=== PATIENT | male | born 1975 | race Caucasian/White ===

== ENCOUNTER 2020-08-21 09:55 | Emergency (ER) | payer MEDICARE, MEDICAID ==
[~2020-08-21] VITALS: Ht 175.3 cm; Wt 118.0 kg
[~2020-08-21 09:55] MED LIST: CYCL-1 PO; FENO48TA15 PO; NAPR-56 PO; VENL-190 PO
[2020-08-21 10:42] LABS: BASOPHILS # (AUTO) 0.1 X10'3 (0-0.2); BASOPHILS % (AUTO) 0.5 % (0-1); EOSINOPHILS # (AUTO) 0.1 X10'3 (0-0.9); EOSINOPHILS % (AUTO) 0.3 % (0-6); HEMATOCRIT 45.5 % (42.0-52.0); HEMOGLOBIN 15.4 g/dl (14.0-17.9); LYMPHOCYTES # (AUTO) 2.4 X10'3 (1.1-4.8); LYMPHOCYTES % (AUTO) 14.6 % (21-51); MEAN CORPUSCULAR HGB CONC 33.9 g/dL (33.0-36.5); MEAN CORPUSCULAR VOLUME 82.3 FL (78-98); MEAN PLATELET VOLUME 8.4 FL (7.4-10.4); MONOCYTES # (AUTO) 1.1 X10'3 (0-0.9); MONOCYTES % (AUTO) 6.9 % (2-12); NEUTROPHILS # (AUTO) 12.9 X10'3 (1.8-7.7); NEUTROPHILS % (AUTO) 77.7 % (42-75); PLATELET COUNT 268 X10'3 (140-440); RED BLOOD COUNT 5.52 X10'6 (4.70-6.10); RED CELL DISTRIBUTION WIDTH 13.7 % (11.5-14.5); WHITE BLOOD COUNT 16.6 X10'3 (4.5-11.0)
[2020-08-21] MEDS ORDERED: LORazepam 2 mg/ml vial IV ONE (10:45)
[2020-08-21 10:59] LABS: ALANINE AMINOTRANSFERASE 35 U/L (12-78); ALBUMIN 3.7 G/DL (3.4-5.0); ALKALINE PHOSPHATASE 49 IU/L (46-116); ANION GAP 9 (8-16); ASPARTATE AMINO TRANSFERASE 30 U/L (10-37); BILIRUBIN,TOTAL 0.4 MG/DL (0.1-1.0); BLOOD UREA NITROGEN 11 MG/DL (7-18); BUN/CREATININE RATIO 9.6 (5.4-32.0); CHLORIDE 101 MMOL/L (99-107); CREATINE KINASE 552 U/L (39-308); CREATININE 1.14 MG/DL (0.60-1.10); GLUCOSE 225 MG/DL (70-104); POTASSIUM 4.1 MMOL/L (3.5-5.1); SODIUM 138 MMOL/L (135-145); TOTAL CARBON DIOXIDE 27.6 MMOL/L (24-32); TOTAL PROTEIN 7.5 G/DL (6.4-8.2); eGFR 69 ML/MIN
[2020-08-21] MEDS ORDERED: ketorolac trometh. 30mg/ml inj. IV ONE (11:05)
--- NOTE | 2020-08-21 12:01 | NUR ---
pt to ct.
[2020-08-21] MEDS ORDERED: morphine 4 MG/ML inj SYRINge IV ONE (12:15)
[2020-08-21] MEDS ORDERED: DIAZ5TAB22 PO (13:07)
[2020-08-21] MEDS ORDERED: HYDR-3965 PO (13:07)
[2020-08-21 14:06] VITALS: BP 98/70
--- NOTE | 2020-08-21 14:06 | NUR ---
Patient states he feels light headed and diaphoretic before dc. Up in chair, BP 97/58. Suly flowers aware, orders to monitor patient.
[2020-08-21] MEDS ORDERED: normal saline 1000ML IV soln IVB ONE (14:15)
[2020-08-21] MEDS ORDERED: metoclopramide 5 mg/ml inj IV ONE (14:45)
--- NOTE | 2020-08-21 15:07 | NUR ---
PATIENT STATES HE IS NO LONGER LIGHT HEADED AND ABDOMINAL PAIN HAS RESOLVED.
[2020-08-21 15:19] LABS: CLARITY,URINE CLEAR (Clear); COLOR,URINE YELLOW (Yellow); GLUCOSE, URINE 250 mg/dl (Neg); KETONES,URINE NEGATIVE (Neg); LEUKOCYTE ESTERASE ,URINE NEGATIVE (Neg); NITRITES, URINE NEGATIVE (Neg); OCCULT BLOOD,URINE NEGATIVE (Neg); PH,URINE 5.5 (4.8-8.0); PROTEIN,URINE TRACE mg/dl (Neg); UROBILINOGEN,URINE 0.2 E.U/dL (0.2-1.0)
[2020-08-21 15:34] LABS: UA COLLECTION TYPE URINAL
[2020-08-21 15:35] LABS: BACTERIA,URINE FEW /HPF (Neg); CAL OXALATE CRYSTALS 4+ /HPF (NEGATIVE); RBC,URINE 0-2 /HPF (0-2); SQUAMOUS EPITHELIAL CELL,UR NONE SEEN /LPF (FEW); WBC,URINE 0-4 /HPF (0-4)
== END 2020-08-21 15:47 | disposition home or self-care (01) ==
LOC: ER 09:56
DX: M54.6 Pain in thoracic spine (principal); M62.830 Muscle spasm of back; G89.29 Other chronic pain; F32.9 Major depressive disorder, single episode, unspecified; Z60.2 Problems related to living alone; Z79.899 Other long term (current) drug therapy
CPT/HCPCS: 36415; 72070; 72100; 72128; 80053; 81001; 82550; 84145; 85025; 96361; 96374; 96375; 99285; J1885; J2060; J2270; J7030

== ENCOUNTER 2021-12-10 04:18 | Emergency (ER) | payer MEDICARE, MEDICAID ==
[~2021-12-10] VITALS: Ht 172.7 cm; Wt 93.2 kg
--- NOTE | 2021-12-10 04:47 | NUR ---
friends wants to be called for ride or if pt. needs anything connor [phone]
[2021-12-10] MEDS ORDERED: METF-1203 PO (04:48)
[2021-12-10] MEDS ORDERED: VENL75CA61 PO (04:48)
[2021-12-10] MEDS ORDERED: FENO145T25 (04:48)
[2021-12-10] MEDS ORDERED: SITA25TA3 PO (04:49)
[2021-12-10] MEDS ORDERED: LORazepam 1 MG tablet PO ONE ×2 (04:50→05:20)
--- NOTE | 2021-12-10 05:33 | NUR ---
pt. started staring at the ceiling and making exaggerated movements in bed. pt. then stated that he has "multiple personalities". pt. is now more relaxed in bed and seizure pads are placed as a precaution.
[2021-12-10 05:35] VITALS: BP 135/79
== END 2021-12-10 06:01 | disposition home or self-care (01) ==
LOC: ER 04:19
DX: F32.A Depression, unspecified (principal); F41.9 Anxiety disorder, unspecified; G89.29 Other chronic pain; M54.9 Dorsalgia, unspecified; Z79.899 Other long term (current) drug therapy
CPT/HCPCS: 93005; 99283

== ENCOUNTER 2022-03-19 01:24 | Emergency (ER) | payer MEDICARE, MEDICAID ==
[~2022-03-19] VITALS: Ht 175.3 cm; Wt 100.0 kg
[~2022-03-19 01:24] MED LIST changes: +FENO145T25; +METF-1203 PO; +SITA25TA3 PO; +VENL75CA61 PO
[2022-03-19 01:42] VITALS: BP 145/85
[2022-03-19] MEDS ORDERED: cyclobenzaprine 10mg tablet PO ONE (03:50)
[2022-03-19] MEDS ORDERED: LIDOcaine 5% patch TP SCH (03:50)
[2022-03-19] MEDS ORDERED: LIDO1ADH67 TD (03:53)
[2022-03-19] MEDS ORDERED: IBUP-1984 PO (03:53)
[2022-03-19] MEDS ORDERED: CYCL-1 PO (03:53)
== END 2022-03-19 04:03 | disposition home or self-care (01) ==
LOC: ER 01:24
DX: M62.830 Muscle spasm of back (principal); G89.29 Other chronic pain; M54.50 Low back pain, unspecified
CPT/HCPCS: 99283

== ENCOUNTER 2022-05-23 18:01 | Emergency (ER) | payer MEDICARE, MEDICAID ==
[~2022-05-23] VITALS: Ht 175.3 cm; Wt 100.0 kg
[~2022-05-23 18:01] MED LIST changes: +LEVO500T2 PO; +LIDO1ADH67 TD
[2022-05-23 18:31] LABS: BASOPHILS # (AUTO) 0.1 X10'3 (0-0.2); BASOPHILS % (AUTO) 0.8 % (0-1); EOSINOPHILS # (AUTO) 0.2 X10'3 (0-0.9); EOSINOPHILS % (AUTO) 1.4 % (0-6); HEMATOCRIT 45.8 % (42.0-52.0); HEMOGLOBIN 15.9 g/dl (14.0-17.9); LYMPHOCYTES # (AUTO) 3.7 X10'3 (1.1-4.8); LYMPHOCYTES % (AUTO) 34.5 % (21-51); MEAN CORPUSCULAR HEMOGLOBIN 29.2 PG (27.0-31.0); MEAN CORPUSCULAR HGB CONC 34.7 g/dL (33.0-36.5); MEAN CORPUSCULAR VOLUME 84.3 FL (78-98); MEAN PLATELET VOLUME 8.6 FL (7.4-10.4); MONOCYTES # (AUTO) 0.8 X10'3 (0-0.9); MONOCYTES % (AUTO) 7.4 % (2-12); NEUTROPHILS % (AUTO) 55.9 % (42-75); PLATELET COUNT 267 X10'3 (140-440); RED BLOOD COUNT 5.43 X10'6 (4.70-6.10); RED CELL DISTRIBUTION WIDTH 13.9 % (11.5-14.5); WHITE BLOOD COUNT 10.7 X10'3 (4.5-11.0)
[2022-05-23 18:41] LABS: ALANINE AMINOTRANSFERASE 34 U/L (12-78); ALBUMIN 4.4 G/DL (3.4-5.0); ALBUMIN/GLOBULIN RATIO 1.3 (1.1-1.5); ALKALINE PHOSPHATASE 39 IU/L (46-116); ANION GAP 7 (8-16); ASPARTATE AMINO TRANSFERASE 30 U/L (10-37); BILIRUBIN,TOTAL 0.4 MG/DL (0.1-1.0); BLOOD UREA NITROGEN 11 MG/DL (7-18); BUN/CREATININE RATIO 10.7 (5.4-32.0); CALCIUM 9.7 MG/DL (8.5-10.1); CHLORIDE 105 MMOL/L (99-107); CREATININE 1.03 MG/DL (0.60-1.10); GLUCOSE 108 MG/DL (70-104); POTASSIUM 3.3 MMOL/L (3.5-5.1); SODIUM 140 MMOL/L (135-145); TOTAL PROTEIN 7.9 G/DL (6.4-8.2); eGFR 77 ML/MIN
[2022-05-23 18:56] LABS: ETHANOL < 0.010 GM/DL (0.0-0.010)
--- NOTE | 2022-05-23 19:30 | NUR ---
Arrived to bed-26 from ER at this time for SI. H/O Split personality disorder. Patient currently denies SI, HI and VH. Reports AH of Sukhwinder (one of his personalities) telling himself to commit suicide. Pleasant, calm and cooperative. Inventory of belongings done and placed in closet and safe. Will continue to monitor.
[2022-05-23] MEDS ORDERED: LORA-268 PO (19:45)
[2022-05-23] MEDS ORDERED: FAMO20TA8 (19:45)
[2022-05-23 19:50] LABS: URINE AMPHETAMINE SCREEN NEGATIVE (Neg); URINE BARBITUATE SCREEN NEGATIVE (Neg); URINE BENZODIAZEPINES SCREEN NEGATIVE (Neg); URINE CANNABINOID SCREEN NEGATIVE (Neg); URINE COCAINE SCREEN NEGATIVE (Neg); URINE METHADONE SCREEN NEGATIVE (Neg); URINE OPIATE SCREEN NEGATIVE (Neg); URINE PHENCYCLIDINE SCREEN NEGATIVE (Neg)
[2022-05-23] MEDS ORDERED: LORazepam 0.5 MG tablet PO PRN (20:35)
[2022-05-23] MEDS ORDERED: potassium Cl 20 mEq SR tablet PO ONE (20:45)
--- NOTE | 2022-05-23 21:30 | NUR ---
Took HS meds well. Pleasant and cooperative. Will continue to monitor. Addendum: 05/23/22 at 2349 by DARIEL Received patient to overflow with a low K+ 3.3. Received replacment orders and administered. Will do follow up K+ lab in the am.
--- NOTE | 2022-05-23 23:35 | NUR ---
Patient appears to be sleeping. Noted the rise/fall of chest. No s/sx of distress noted. Will continue to monitor.
--- NOTE | 2022-05-24 01:15 | NUR ---
Patient sitting on the side of the bed. Expressed that he takes melatonin 5 mg po at home. Will contact .
[2022-05-24] MEDS ORDERED: Melatonin 3mg tablet PO STA (01:26)
--- NOTE | 2022-05-24 01:58 | NUR ---
Administered Melatonin for sleep aid. Will continue to monitor.
--- NOTE | 2022-05-24 03:19 | NUR ---
Patient appears to be sleeping after melatonin administration. Resting on left side with cover pulled over his head resting quietly. RR even/nonlabored. Will continue to monitor.
--- NOTE | 2022-05-24 05:15 | NUR ---
Lab here to draw potassium level. Patient was found "meditating" in bed sitting with legs crossed and hands in a praying position. Noted to be pleasant and cooperative. Will continue to monitor.
--- NOTE | 2022-05-24 07:00 | NUR ---
Patient resting comfortably, rr even and unlabored.
[2022-05-24] MEDS ORDERED: venlafaxine XR 75mg capsule (Q24H) PO SCH (08:00)
[2022-05-24] MEDS ORDERED: linagliptin 5mg tablet PO SCH (08:00)
[2022-05-24] MEDS ORDERED: famotidine 20mg tablet PO SCH (08:00)
[2022-05-24] MEDS ORDERED: metFORMIN 500mg tablet PO SCH (08:00)
--- NOTE | 2022-05-24 09:00 | NUR ---
One to one with patient to assess suicidal thoughts. Pt was sitting on side of bed upon greeting. Pt is calm, but does not make eye contact. Pt denies SI/HI/A/VH. Pt states "I just want to go home and go to bed." Pt reports he was told to say he was suicidal, so he would get admitted. "i feel like I was trcked into this and I didn't want to be alone." Pt needs medication adjustment. Pt was educated that the ED does not make adjustments to current medications. Pt has MH and PCP with Clarke Gupta. Pt has support from [facility] and parents live in [facility]
--- NOTE | 2022-05-24 09:31 | NUR ---
Patient has been up and down sorta pacing he said that he has foor cramps. Patient is now resting in bed. [facility] came in to talk to patient @9:10am
--- NOTE | 2022-05-24 11:09 | NUR ---
Patient resting comfortably, rr even and unlabored.
--- NOTE | 2022-05-24 13:00 | NUR ---
pt laying in bed quietly
--- NOTE | 2022-05-24 13:38 | NUR ---
Pt awake sitting on his bed. Pt waiting for parents to come and pick him up.
--- NOTE | 2022-05-24 15:11 | NUR ---
DISCHARGE NOTE Patient was discharged from unit at 1415. Pt left with all personal belongings, including his wallet. Pt was discharged to mom and dad. Pt was A&Ox 4. Pt denied thoughts of hurting self or others. Reforced the importance of keeping follow up appointment with Clarke Gupta, pt verbalized understanding.
[2022-05-24 15:13] VITALS: BP 106/73
== END 2022-05-24 14:15 | disposition home or self-care (01) ==
LOC: ER 18:02
DX: F29 Unspecified psychosis not due to a substance or known physiological condition (principal); Z20.822 Contact with and (suspected) exposure to COVID-19; E87.6 Hypokalemia; G89.29 Other chronic pain; M54.9 Dorsalgia, unspecified; F32.A Depression, unspecified; Z79.899 Other long term (current) drug therapy; Z79.1 Long term (current) use of non-steroidal anti-inflammatories (NSAID); Z79.2 Long term (current) use of antibiotics
CPT/HCPCS: 36415; 80053; 80305; 80320; 84132; 84443; 85025; 87811; 99285

== ENCOUNTER 2022-07-21 06:44 | Observation (INO) | payer MEDICARE, MEDICAID ==
[~2022-07-21] VITALS: Ht 83.8 cm; Wt 97.0 kg
[~2022-07-21 06:44] MED LIST changes: -CYCL-1 PO; +FAMO20TA8; -FENO145T25; -FENO48TA15 PO; -LEVO500T2 PO; -LIDO1ADH67 TD; +LORA-268 PO; -NAPR-56 PO; -VENL-190 PO
--- NOTE | 2022-07-21 07:01 | NUR ---
CALL PLACED TO PTS FATHER GEORGIE PT HAS REQUESTED HIS PARENTS BE UPDATED AND ASKED TO COME TO THE [facility]. FATHER STATES THAT THEY LIVE AN HOUR AWAY BUT THEY WILL COME TO [facility] SOON POSSIBLE
[2022-07-21] MEDS ORDERED: iohexol 350MG/ML 100ml bottle IV ONE (07:22)
--- NOTE | 2022-07-21 07:26 | NUR ---
BLUE PAULO NEURO CONSULT COMPLETED
[2022-07-21] MEDS: MESSAGE TO NURSING PO NR ×2 (07:30→10:00)
[2022-07-21 07:42] LABS: CLARITY,URINE CLEAR (Clear); COLOR,URINE YELLOW (Yellow); GLUCOSE, URINE NEGATIVE (Neg); KETONES,URINE NEGATIVE (Neg); LEUKOCYTE ESTERASE ,URINE NEGATIVE (Neg); NITRITES, URINE NEGATIVE (Neg); OCCULT BLOOD,URINE NEGATIVE (Neg); PROTEIN,URINE NEGATIVE (Neg); UA COLLECTION TYPE CLN CATCH MIDSTREAM; UROBILINOGEN,URINE 0.2 E.U/dL (0.2-1.0)
[2022-07-21 08:12] LABS: BASOPHILS # (AUTO) 0.1 X10'3 (0-0.2); BASOPHILS % (AUTO) 0.7 % (0-1); EOSINOPHILS # (AUTO) 0.2 X10'3 (0-0.9); EOSINOPHILS % (AUTO) 1.8 % (0-6); HEMATOCRIT 43.2 % (42.0-52.0); HEMOGLOBIN 14.8 g/dl (14.0-17.9); LYMPHOCYTES # (AUTO) 2.4 X10'3 (1.1-4.8); MEAN CORPUSCULAR HEMOGLOBIN 29.7 PG (27.0-31.0); MEAN CORPUSCULAR HGB CONC 34.3 g/dL (33.0-36.5); MEAN CORPUSCULAR VOLUME 86.5 FL (78-98); MONOCYTES # (AUTO) 0.8 X10'3 (0-0.9); NEUTROPHILS # (AUTO) 5.3 X10'3 (1.8-7.7); NEUTROPHILS % (AUTO) 60.5 % (42-75); PLATELET COUNT 223 X10'3 (140-440); RED BLOOD COUNT 4.99 X10'6 (4.70-6.10); RED CELL DISTRIBUTION WIDTH 13.8 % (11.5-14.5); WHITE BLOOD COUNT 8.7 X10'3 (4.5-11.0)
[2022-07-21 08:25] LABS: APTT 29 SECONDS (22-32)
[2022-07-21 08:28] LABS: ALANINE AMINOTRANSFERASE 30 U/L (12-78); ALBUMIN 3.7 G/DL (3.4-5.0); ALBUMIN/GLOBULIN RATIO 1.2 (1.1-1.5); ALKALINE PHOSPHATASE 35 IU/L (46-116); ANION GAP 8 (8-16); ASPARTATE AMINO TRANSFERASE 24 U/L (10-37); BILIRUBIN,TOTAL 0.2 MG/DL (0.1-1.0); BLOOD UREA NITROGEN 15 MG/DL (7-18); BUN/CREATININE RATIO 13.4 (10.0-20.0); CHLORIDE 100 MMOL/L (99-107); CREATININE 1.12 MG/DL (0.60-1.10); GLUCOSE 112 MG/DL (70-104); POTASSIUM 3.7 MMOL/L (3.5-5.1); SODIUM 137 MMOL/L (135-145); TOTAL CARBON DIOXIDE 29.4 MMOL/L (24-32); TOTAL PROTEIN 6.7 G/DL (6.4-8.2); eGFR 70 ML/MIN
[2022-07-21 08:33] LABS: CALCIUM 9.1 MG/DL (8.5-10.1)
--- NOTE | 2022-07-21 08:55 | NUR ---
PT TO BE ADMITTED FOR R/O STROKE, PER DR MCCALL Q15 VITALS NOT NECESSARY
--- NOTE | 2022-07-21 08:56 | NUR ---
PTS FATHER AT BEDSIDE, STROKE NURSE AT BEDSIDE TO PERFORM NIH AND SWALLOW EVAL
[2022-07-21] MEDS ORDERED: magnesium 4gm in 100ml NS 100 ML IV PRN (10:10)
[2022-07-21] MEDS ORDERED: morphine 2 MG/ML inj. syringe IV PRN (10:10)
[2022-07-21] MEDS ORDERED: magnesium hydroxide 30ml (MOM) UD suspension PO PRN (10:10)
[2022-07-21] MEDS ORDERED: magnesium 2GM in 50ml NS 50 ML IV PRN (10:10)
[2022-07-21] MEDS ORDERED: acetaminophen 325mg tablet PO PRN ×2 (10:10)
[2022-07-21] MEDS ORDERED: potassium Cl 20 mEq SR tablet PO PRN (10:10)
[2022-07-21] MEDS ORDERED: potassium Cl 40MEQ/1/2NS 520ml 520 ML IV PRN (10:10)
[2022-07-21] MEDS ORDERED: magnesium Cl slow-release 64mg tablet PO PRN (10:10)
[2022-07-21] MEDS ORDERED: ondansetron/PF 4mg/2ml inj IV PRN (10:10)
[2022-07-21] MEDS ORDERED: HYDROcodone/acetaminophen 5mg/325mg tablet PO PRN (10:10)
[2022-07-21] MEDS: atorvastatin 20mg tablet PO SCH (11:17)
[2022-07-21] MEDS: normal saline 1000ml 1,000 ML IV SCH ×2 (11:17→14:29)
[2022-07-21] MEDS: aspirin 81mg, enteric-coated 1 TAB TABLET.DR PO SCH (11:17)
[2022-07-21] MEDS ORDERED: FENO145T25 PO (13:01)
[2022-07-21] MEDS ORDERED: ARIP10TA57 PO (13:01)
[2022-07-21] MEDS ORDERED: IBUP-1985 PO (13:01)
[2022-07-21] MEDS ORDERED: VENL150T3 PO (13:01)
[2022-07-21] MEDS ORDERED: CETI10TA14 (13:01)
--- NOTE | 2022-07-21 13:32 | NUR ---
report given to Sandra Davison RN
[2022-07-21 14:00] VITALS: BP 129/83
[2022-07-21] MEDS ORDERED: LORazepam 0.5 MG tablet PO PRN (15:55)
[2022-07-21] MEDS ORDERED: MESSAGE TO PHARMACY PO ONE (16:00)
[2022-07-21] MEDS ORDERED: dextrose 50%-water 50ml dispensing syringe IV PRN ×2 (16:00)
[2022-07-21] MEDS ORDERED: insulin Lispro (HumaLOG) vial - multi-dose SQ SCH (16:00)
[2022-07-21] MEDS ORDERED: DEXTROSE 15 GM of carb/4 tabs (each vial/BOTTLE has 4 tablets) PO PRN ×2 (16:00)
[2022-07-21] MEDS ORDERED: glucagon, human recombinant 1mg kit SUBCUT PRN (16:00)
[2022-07-21 18:00] VITALS: BP 117/77
[2022-07-21 18:10] LABS: CHOL/HDL RATIO 4.3 (0.00-4.99); CHOLESTEROL 180 MG/DL (0-200); HDL CHOLESTEROL 42 MG/DL (35-60); LDL CHOLESTEROL 114 MG/DL (50-100); POTASSIUM 4.2 MMOL/L (3.5-5.1); TRIGLYCERIDES 95 MG/DL (20-135)
[2022-07-21 18:23] LABS: HEMOGLOBIN A1C 5.3 % (4.5-6.2)
--- NOTE | 2022-07-21 18:33 | NUR ---
Problems reprioritized. Patient report given, questions answered & plan of care reviewed with Sarah RAMSO.
--- NOTE | 2022-07-21 18:55 | NUR ---
Patient in room ORTHO 4021. I have received report from JAYLEN RAMOS and had the opportunity to ask questions and assume patient care.
[2022-07-21] MEDS ORDERED: ARIPIPRAZOLE 10 MG TABLET PO SCH (21:00)
[2022-07-21] MEDS ORDERED: insulin glargine (Lantus) pen - multi-dose SQ SCH (21:00)
[2022-07-21] MEDS ORDERED: temazepam 15mg capsule PO PRN (21:00)
[2022-07-21 22:00] VITALS: BP 106/54
[2022-07-22 02:00] VITALS: BP 104/73
[2022-07-22] MEDS: normal saline 1000ml 1,000 ML IV SCH (03:33)
[2022-07-22 06:00] VITALS: BP 108/65
[2022-07-22 06:21] LABS: BASOPHILS # (AUTO) 0.1 X10'3 (0-0.2); BASOPHILS % (AUTO) 0.7 % (0-1); EOSINOPHILS # (AUTO) 0.1 X10'3 (0-0.9); EOSINOPHILS % (AUTO) 1.7 % (0-6); HEMATOCRIT 40.3 % (42.0-52.0); HEMOGLOBIN 13.8 g/dl (14.0-17.9); LYMPHOCYTES # (AUTO) 3.1 X10'3 (1.1-4.8); LYMPHOCYTES % (AUTO) 35.8 % (21-51); MEAN CORPUSCULAR HEMOGLOBIN 29.7 PG (27.0-31.0); MEAN CORPUSCULAR HGB CONC 34.2 g/dL (33.0-36.5); MEAN CORPUSCULAR VOLUME 86.9 FL (78-98); MEAN PLATELET VOLUME 8.6 FL (7.4-10.4); MONOCYTES # (AUTO) 0.8 X10'3 (0-0.9); MONOCYTES % (AUTO) 9.5 % (2-12); NEUTROPHILS # (AUTO) 4.6 X10'3 (1.8-7.7); NEUTROPHILS % (AUTO) 52.3 % (42-75); PLATELET COUNT 227 X10'3 (140-440); RED BLOOD COUNT 4.63 X10'6 (4.70-6.10); RED CELL DISTRIBUTION WIDTH 13.8 % (11.5-14.5); WHITE BLOOD COUNT 8.8 X10'3 (4.5-11.0)
--- NOTE | 2022-07-22 06:26 | NUR ---
Problems reprioritized. Patient report given, questions answered & plan of care reviewed with SARAH YEN.
--- NOTE | 2022-07-22 06:30 | NUR ---
Patient in room ORTHO 4021. I have received report from COLBY RAMOS and had the opportunity to ask questions and assume patient care.
[2022-07-22 06:35] LABS: ALANINE AMINOTRANSFERASE 29 U/L (12-78); ALBUMIN 3.4 G/DL (3.4-5.0); ALBUMIN/GLOBULIN RATIO 1.2 (1.1-1.5); ALKALINE PHOSPHATASE 31 IU/L (46-116); ANION GAP 5 (8-16); ASPARTATE AMINO TRANSFERASE 29 U/L (10-37); BILIRUBIN,TOTAL 0.5 MG/DL (0.1-1.0); BLOOD UREA NITROGEN 13 MG/DL (7-18); BUN/CREATININE RATIO 12.4 (10.0-20.0); CALCIUM 9.1 MG/DL (8.5-10.1); CHLORIDE 107 MMOL/L (99-107); CHOL/HDL RATIO 4.1 (0.00-4.99); CHOLESTEROL 151 MG/DL (0-200); CREATININE 1.05 MG/DL (0.60-1.10); GLUCOSE 93 MG/DL (70-104); HDL CHOLESTEROL 37 MG/DL (35-60); LDL CHOLESTEROL 94 MG/DL (50-100); SODIUM 142 MMOL/L (135-145); TOTAL CARBON DIOXIDE 29.8 MMOL/L (24-32); TOTAL PROTEIN 6.2 G/DL (6.4-8.2); TRIGLYCERIDES 76 MG/DL (20-135); eGFR 75 ML/MIN
[2022-07-22] MEDS ORDERED: enoxaparin 40mg/0.4ml syringe SQ SCH (08:00)
[2022-07-22] MEDS ORDERED: fenofibrate 145mg tablet PO SCH (08:00)
[2022-07-22] MEDS ORDERED: linagliptin 5mg tablet PO SCH (08:00)
[2022-07-22] MEDS ORDERED: venlafaxine XR 75mg capsule (Q24H) PO SCH (08:00)
[2022-07-22] MEDS ORDERED: famotidine 20mg tablet PO SCH (08:00)
[2022-07-22] MEDS: atorvastatin 20mg tablet PO SCH (09:01)
[2022-07-22] MEDS: aspirin 81mg, enteric-coated 1 TAB TABLET.DR PO SCH (09:02)
--- NOTE | 2022-07-22 09:21 | NUR ---
Pt c/o discomfort at LRQ abdomen. Requested lotion to apply on area. No discoloration or other changes to skin.
--- NOTE | 2022-07-22 09:51 | NUR ---
Noted pt BMI 138.1 w/ height 33in; ZA d/w RN if ht can be corrected to 69in per prior height hx. True BMI 31.6. Addendum: 07/22/22 at [address] Amended: Links added.
[2022-07-22 10:00] VITALS: BP 128/82
[2022-07-22] MEDS: MESSAGE TO NURSING PO NR (10:09)
[2022-07-22] MEDS ORDERED: METF-1203 PO (13:18)
--- NOTE | 2022-07-22 13:30 | NUR ---
I have reviewed and agree with interventions, assessments, and documentation by FARSHAD Ivy & FARSHAD Jacome.
== END 2022-07-22 13:50 | disposition home or self-care (01) ==
LOC: ER 06:45 → ED HOLD 10:08 → ORTHO 4S 14:22
PROVIDERS: ADMIT Internal Medicine; ATTEND Internal Medicine
DX: R20.0 Anesthesia of skin (principal); E11.9 Type 2 diabetes mellitus without complications; F41.8 Other specified anxiety disorders; G89.29 Other chronic pain; M54.9 Dorsalgia, unspecified; Z79.84 Long term (current) use of oral hypoglycemic drugs; Z79.899 Other long term (current) drug therapy
CPT/HCPCS: 36415; 70450; 70496; 70498; 70551; 71045; 80053; 80061; 81003; 82948; 83036; 83735; 84132; 85025; 85610; 85730; 86885; 86900; 86901; 92508; 92526; 92616; 93005; 93306; 96360; 96361; 96372; 97161; 97530; 99285; G0378; J1650; J3490; J7030; Q9967; J1815

== ENCOUNTER 2022-07-31 15:07 | Emergency (ER) | payer MEDICARE, MEDICAID ==
[~2022-07-31] VITALS: Ht 170.2 cm; Wt 81.8 kg
[~2022-07-31 15:07] MED LIST changes: +ARIP10TA57 PO; +CETI10TA14; +FENO145T25 PO; +IBUP-1985 PO; -SITA25TA3 PO; +VENL150T3 PO; -VENL75CA61 PO
[2022-07-31 16:46] LABS: BASOPHILS # (AUTO) 0.1 X10'3 (0-0.2); EOSINOPHILS # (AUTO) 0.2 X10'3 (0-0.9); EOSINOPHILS % (AUTO) 2.2 % (0-6); HEMATOCRIT 48.2 % (42.0-52.0); HEMOGLOBIN 16.5 g/dl (14.0-17.9); LYMPHOCYTES # (AUTO) 3.7 X10'3 (1.1-4.8); LYMPHOCYTES % (AUTO) 35.8 % (21-51); MEAN CORPUSCULAR HEMOGLOBIN 29.8 PG (27.0-31.0); MEAN CORPUSCULAR HGB CONC 34.1 g/dL (33.0-36.5); MEAN CORPUSCULAR VOLUME 87.4 FL (78-98); MONOCYTES # (AUTO) 0.8 X10'3 (0-0.9); MONOCYTES % (AUTO) 8.1 % (2-12); NEUTROPHILS # (AUTO) 5.5 X10'3 (1.8-7.7); NEUTROPHILS % (AUTO) 52.9 % (42-75); PLATELET COUNT 271 X10'3 (140-440); RED BLOOD COUNT 5.52 X10'6 (4.70-6.10); RED CELL DISTRIBUTION WIDTH 13.8 % (11.5-14.5); WHITE BLOOD COUNT 10.4 X10'3 (4.5-11.0)
[2022-07-31] MEDS ORDERED: OLANZapine 2.5MG tablet PO ONE (17:00)
[2022-07-31 17:13] LABS: ALANINE AMINOTRANSFERASE 56 U/L (12-78); ALBUMIN 4.3 G/DL (3.4-5.0); ALBUMIN/GLOBULIN RATIO 1.2 (1.1-1.5); ALKALINE PHOSPHATASE 36 IU/L (46-116); ANION GAP 8 (8-16); ASPARTATE AMINO TRANSFERASE 43 U/L (10-37); BILIRUBIN,TOTAL 0.5 MG/DL (0.1-1.0); BLOOD UREA NITROGEN 20 MG/DL (7-18); BUN/CREATININE RATIO 13.6 (10.0-20.0); CALCIUM 9.8 MG/DL (8.5-10.1); CHLORIDE 103 MMOL/L (99-107); CREATININE 1.47 MG/DL (0.60-1.10); ETHANOL < 0.010 GM/DL (0.0-0.010); GLUCOSE 147 MG/DL (70-104); POTASSIUM 3.8 MMOL/L (3.5-5.1); SODIUM 138 MMOL/L (135-145); TOTAL PROTEIN 7.9 G/DL (6.4-8.2); eGFR 51 ML/MIN
[2022-07-31 17:38] LABS: CLARITY,URINE CLEAR (Clear); COLOR,URINE YELLOW (Yellow); GLUCOSE, URINE NEGATIVE (Neg); KETONES,URINE NEGATIVE (Neg); LEUKOCYTE ESTERASE ,URINE NEGATIVE (Neg); NITRITES, URINE NEGATIVE (Neg); OCCULT BLOOD,URINE NEGATIVE (Neg); PROTEIN,URINE NEGATIVE (Neg); UROBILINOGEN,URINE 0.2 E.U/dL (0.2-1.0)
[2022-07-31 17:43] LABS: UA COLLECTION TYPE CLN CATCH MIDSTREAM
[2022-07-31 17:44] LABS: URINE AMPHETAMINE SCREEN NEGATIVE (Neg); URINE BARBITUATE SCREEN NEGATIVE (Neg); URINE BENZODIAZEPINES SCREEN NEGATIVE (Neg); URINE CANNABINOID SCREEN NEGATIVE (Neg); URINE COCAINE SCREEN NEGATIVE (Neg); URINE METHADONE SCREEN NEGATIVE (Neg); URINE OPIATE SCREEN NEGATIVE (Neg); URINE PHENCYCLIDINE SCREEN NEGATIVE (Neg)
--- NOTE | 2022-07-31 19:00 | NUR ---
Patient brought from [facility] to Overflow 22. Patient is well oriented. He makes direct eye contact and speaks in a normal rate, rhythm and tone. Patient complains of increasing loud voices in his head, they are non command. Patient requests medication adjustment. Patient states he has been off his medications for a few days. Patient denieis visual hallucinations. Patient denies S/I or H/I.
--- NOTE | 2022-07-31 20:42 | NUR ---
Patient is sleeping, supine position in bed.
--- NOTE | 2022-07-31 20:52 | NUR ---
Patient complains of LUQ abd discomfort, "burning." Patient requests his pepcid which he has not taken today. This will be adm.
[2022-07-31] MEDS ORDERED: famotidine 20mg tablet PO ONE (20:55)
--- NOTE | 2022-07-31 22:44 | NUR ---
Patient is sleeping quietly in a supine position.
--- NOTE | 2022-07-31 23:36 | NUR ---
Patient continues to sleep quietly.
[2022-08-01] MEDS ORDERED: LORazepam 0.5 MG tablet PO PRN (07:00)
--- NOTE | 2022-08-01 07:07 | NUR ---
Patient sleeping in bed with blanket over head. Respirations are even and unlabored.
[2022-08-01] MEDS ORDERED: ibuprofen 200mg tablet PO PRN (07:10)
[2022-08-01] MEDS: venlafaxine XR 75mg capsule (Q24H) PO SCH (09:24)
[2022-08-01] MEDS: cetirizine 10mg tablet PO SCH (09:24)
[2022-08-01] MEDS: famotidine 20mg tablet PO SCH (09:24)
[2022-08-01] MEDS: fenofibrate 145mg tablet PO SCH (09:25)
--- NOTE | 2022-08-01 09:30 | NUR ---
Patient awoke and took his medications without incident. Patient is now eating breakfast.
--- NOTE | 2022-08-01 11:45 | NUR ---
Patient has been sleeping since breakfast. No distress noted.
--- NOTE | 2022-08-01 11:45 | NUR ---
Patient has been sleeping since she ate her second breakfast. Ordered double portions, because patient requests another tray as soon as she eats the first tray. No distress noted. Patient is continent.
--- NOTE | 2022-08-01 11:47 | NUR ---
[facility] here to evaluate patient.
--- NOTE | 2022-08-01 13:24 | NUR ---
Patient has been sleeping since lunch. No complaints at this time.
--- NOTE | 2022-08-01 15:59 | NUR ---
Patient continues to be in a deep sleep. Respirations are even and nonlabored.
--- NOTE | 2022-08-01 17:09 | NUR ---
Patient was restless in bed, went over and spoke with him. Patient has only urinated once so far this shift, but states he does not have to go to the bathroom. Patient states that he is not suicidal and he is not hearing voices. Patient also reports that he is hard of hearing in his right ear.
--- NOTE | 2022-08-01 17:19 | NUR ---
Patient also states that his MD took him off of his Metformin and Junevia. Patient states that he wanted to stay on the Junevia because of weight loss. Patient states that when he is at home, he eats constantly.
--- NOTE | 2022-08-01 18:43 | NUR ---
One to one with the patient to review plan of care and assess for severity of psyhiatric symptoms. The patient appears to resting quietly on his bed. He appears calm and was very pleasant when approached for the evening assessment. The patient stated, "I'm feeling fine. I haven't had any issues" He denies hearing voices today and he did not appear psychotic during the interview. He also added "My voices are my alternative personalities" He described his mood as "pretty good" He denied anxiety, suicidal thoughts or thoughts to harm others. He stated that he felt he could be safe at home "Now that they have me back on my effexor I think it will be okay"
--- NOTE | 2022-08-01 20:42 | NUR ---
The patient appears to be sleeping
[2022-08-01] MEDS ORDERED: ARIPIPRAZOLE 10 MG TABLET PO SCH (21:00)
--- NOTE | 2022-08-01 22:37 | NUR ---
The patient appears to be sleeping
--- NOTE | 2022-08-02 00:09 | NUR ---
The patient appears to be sleeping
--- NOTE | 2022-08-02 01:22 | NUR ---
The patient appears to be sleeping
--- NOTE | 2022-08-02 03:03 | NUR ---
The patient is resting on his bed. He has periodically been awake
--- NOTE | 2022-08-02 05:05 | NUR ---
The patient appears to be sleeping
[2022-08-02 06:29] VITALS: BP 110/72
--- NOTE | 2022-08-02 07:05 | NUR ---
Pt lying in bed appears to be sleeping, no apparent distress. Repirations even and unlabored.
[2022-08-02] MEDS: famotidine 20mg tablet PO SCH (08:15)
[2022-08-02] MEDS: fenofibrate 145mg tablet PO SCH (08:15)
[2022-08-02] MEDS: venlafaxine XR 75mg capsule (Q24H) PO SCH (08:15)
[2022-08-02] MEDS: cetirizine 10mg tablet PO SCH (08:15)
--- NOTE | 2022-08-02 09:00 | NUR ---
Pt awake sitting up in bed. Pt is pleasant on greeting. Pt was compliant with his medication. Pt denies SI, HI, A/VH. Pt reports "I feel good, ready to go home." Pt ate 95% of his breakfast.
--- NOTE | 2022-08-02 10:51 | NUR ---
Pt resting in bed quietly. Pt's parents will be here to pick him up around 1300.
== END 2022-08-02 13:30 | disposition home or self-care (01) ==
LOC: ER 15:08
DX: F41.0 Panic disorder [episodic paroxysmal anxiety] (principal); Z20.822 Contact with and (suspected) exposure to COVID-19; F41.9 Anxiety disorder, unspecified; F23 Brief psychotic disorder
CPT/HCPCS: 36415; 80053; 80305; 80320; 81003; 85025; 87811; 99284

== ENCOUNTER 2022-09-08 12:46 | Emergency (ER) | payer MEDICARE, MEDICAID ==
[~2022-09-08] VITALS: Ht 175.3 cm; Wt 105.0 kg
[~2022-09-08 12:46] MED LIST changes: -METF-1203 PO
[2022-09-08 12:53] VITALS: BP 168/93
[2022-09-08 13:23] LABS: URINE AMPHETAMINE SCREEN NEGATIVE (Neg); URINE BARBITUATE SCREEN NEGATIVE (Neg); URINE BENZODIAZEPINES SCREEN NEGATIVE (Neg); URINE CANNABINOID SCREEN NEGATIVE (Neg); URINE COCAINE SCREEN NEGATIVE (Neg); URINE METHADONE SCREEN NEGATIVE (Neg); URINE OPIATE SCREEN NEGATIVE (Neg); URINE PHENCYCLIDINE SCREEN NEGATIVE (Neg)
[2022-09-08 13:25] LABS: BASOPHILS # (AUTO) 0.1 X10'3 (0-0.2); BASOPHILS % (AUTO) 1.1 % (0-1); EOSINOPHILS # (AUTO) 0.2 X10'3 (0-0.9); EOSINOPHILS % (AUTO) 1.8 % (0-6); HEMATOCRIT 44.8 % (42.0-52.0); HEMOGLOBIN 15.6 g/dl (14.0-17.9); LYMPHOCYTES # (AUTO) 4.6 X10'3 (1.1-4.8); LYMPHOCYTES % (AUTO) 43.9 % (21-51); MEAN CORPUSCULAR HEMOGLOBIN 30.1 PG (27.0-31.0); MEAN CORPUSCULAR HGB CONC 34.8 g/dL (33.0-36.5); MEAN CORPUSCULAR VOLUME 86.5 FL (78-98); MEAN PLATELET VOLUME 8.1 FL (7.4-10.4); MONOCYTES # (AUTO) 0.8 X10'3 (0-0.9); MONOCYTES % (AUTO) 8.1 % (2-12); NEUTROPHILS # (AUTO) 4.7 X10'3 (1.8-7.7); NEUTROPHILS % (AUTO) 45.1 % (42-75); PLATELET COUNT 275 X10'3 (140-440); RED BLOOD COUNT 5.18 X10'6 (4.70-6.10); RED CELL DISTRIBUTION WIDTH 13.5 % (11.5-14.5); WHITE BLOOD COUNT 10.5 X10'3 (4.5-11.0)
[2022-09-08 13:41] LABS: ALANINE AMINOTRANSFERASE 40 U/L (12-78); ALBUMIN 4.1 G/DL (3.4-5.0); ALBUMIN/GLOBULIN RATIO 1.1 (1.1-1.5); ALKALINE PHOSPHATASE 43 IU/L (46-116); ANION GAP 12 (8-16); ASPARTATE AMINO TRANSFERASE 29 U/L (10-37); BILIRUBIN,TOTAL 0.3 MG/DL (0.1-1.0); BLOOD UREA NITROGEN 16 MG/DL (7-18); BUN/CREATININE RATIO 11.6 (10.0-20.0); CALCIUM 9.3 MG/DL (8.5-10.1); CHLORIDE 103 MMOL/L (99-107); CREATININE 1.38 MG/DL (0.60-1.10); GLUCOSE 172 MG/DL (70-104); POTASSIUM 3.6 MMOL/L (3.5-5.1); SODIUM 141 MMOL/L (135-145); TOTAL CARBON DIOXIDE 25.6 MMOL/L (24-32); TOTAL PROTEIN 7.7 G/DL (6.4-8.2); eGFR 55 ML/MIN
[2022-09-08 13:53] LABS: ETHANOL < 0.010 GM/DL (0.0-0.010)
== END 2022-09-08 16:23 | disposition home or self-care (01) ==
LOC: ER 12:46
DX: F41.9 Anxiety disorder, unspecified (principal); R45.851 Suicidal ideations; G89.29 Other chronic pain; M54.9 Dorsalgia, unspecified; F32.A Depression, unspecified; Z79.899 Other long term (current) drug therapy; Z88.8 Allergy status to other drugs, medicaments and biological substances
CPT/HCPCS: 36415; 80053; 80305; 80320; 84443; 85025; 99283

== ENCOUNTER 2022-11-07 08:03 | Emergency (ER) | payer MEDICARE, MEDICAID ==
[~2022-11-07] VITALS: Ht 175.3 cm; Wt 100.0 kg
[2022-11-07 09:14] LABS: BASOPHILS # (AUTO) 0.1 X10'3 (0-0.2); BASOPHILS % (AUTO) 0.7 % (0-1); EOSINOPHILS # (AUTO) 0.2 X10'3 (0-0.9); EOSINOPHILS % (AUTO) 1.8 % (0-6); LYMPHOCYTES # (AUTO) 2.7 X10'3 (1.1-4.8); LYMPHOCYTES % (AUTO) 29.1 % (21-51); MEAN CORPUSCULAR HEMOGLOBIN 29.5 PG (27.0-31.0); MEAN CORPUSCULAR HGB CONC 33.9 g/dL (33.0-36.5); MEAN CORPUSCULAR VOLUME 86.8 FL (78-98); MEAN PLATELET VOLUME 8.2 FL (7.4-10.4); MONOCYTES # (AUTO) 0.6 X10'3 (0-0.9); MONOCYTES % (AUTO) 6.8 % (2-12); NEUTROPHILS # (AUTO) 5.8 X10'3 (1.8-7.7); NEUTROPHILS % (AUTO) 61.6 % (42-75); PLATELET COUNT 240 X10'3 (140-440); RED BLOOD COUNT 5.42 X10'6 (4.70-6.10); RED CELL DISTRIBUTION WIDTH 13.1 % (11.5-14.5); WHITE BLOOD COUNT 9.4 X10'3 (4.5-11.0)
[2022-11-07 09:31] LABS: ALANINE AMINOTRANSFERASE 30 U/L (12-78); ALBUMIN/GLOBULIN RATIO 1.1 (1.1-1.5); ALKALINE PHOSPHATASE 40 IU/L (46-116); ANION GAP 10 (8-16); ASPARTATE AMINO TRANSFERASE 24 U/L (10-37); BILIRUBIN,TOTAL 0.5 MG/DL (0.1-1.0); BLOOD UREA NITROGEN 12 MG/DL (7-18); BUN/CREATININE RATIO 11.7 (10.0-20.0); CALCIUM 9.5 MG/DL (8.5-10.1); CHLORIDE 106 MMOL/L (99-107); CREATININE 1.03 MG/DL (0.60-1.10); ETHANOL < 10 MG/DL (<10); GLUCOSE 131 MG/DL (70-104); POTASSIUM 3.8 MMOL/L (3.5-5.1); SODIUM 142 MMOL/L (135-145); TOTAL CARBON DIOXIDE 26.1 MMOL/L (24-32); TOTAL PROTEIN 7.7 G/DL (6.4-8.2); eCRCL 88 ML/MIN; eGFR 77 ML/MIN
--- NOTE | 2022-11-07 10:12 | NUR ---
Patient ambulatory to ED OF from Main ED Hallway. No distress observed. Patient is still pending urine sample. Patient is aware. Continue to monitor.
[2022-11-07] MEDS ORDERED: HYDR-3927 PO (10:29)
[2022-11-07] MEDS ORDERED: METF-900 PO (10:29)
[2022-11-07] MEDS ORDERED: CHOL500044 PO (10:29)
[2022-11-07] MEDS ORDERED: LORA-268 PO (10:29)
[2022-11-07] MEDS ORDERED: LORazepam 1 MG tablet PO ONE (10:50)
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
[2022-11-07 11:03] LABS: THYROID STIMULATING HORMONE 1.41 ulU/ml (0.34-4.50)
[2022-11-07] MEDS ORDERED: hydrOXYzine 25 MG tablet PO PRN (11:05)
[2022-11-07] MEDS ORDERED: LORazepam 0.5 MG tablet PO PRN (11:05)
[2022-11-07] MEDS ORDERED: ibuprofen 200mg tablet PO PRN (11:05)
[2022-11-07] MEDS ORDERED: METF-436 PO (11:06)
--- NOTE | 2022-11-07 11:27 | NUR ---
Patient states he is prediabetic. Patient denies taking Metformin but it was ordered by his Physician yesterday. Continue to monitor.
[2022-11-07 12:24] LABS: BILIRUBIN,URINE NEGATIVE (Neg); CLARITY,URINE CLEAR (Clear); COLOR,URINE YELLOW (Yellow); GLUCOSE, URINE NEGATIVE (Neg); KETONES,URINE NEGATIVE (Neg); LEUKOCYTE ESTERASE ,URINE TRACE (Neg); NITRITES, URINE NEGATIVE (Neg); OCCULT BLOOD,URINE NEGATIVE (Neg); PROTEIN,URINE NEGATIVE (Neg); UROBILINOGEN,URINE 0.2 E.U/dL (0.2-1.0)
[2022-11-07 12:31] LABS: UA COLLECTION TYPE CLN CATCH MIDSTREAM
[2022-11-07 12:32] LABS: BACTERIA,URINE NONE SEEN /HPF (Neg); MUCUS STRANDS NONE SEEN /LPF (Neg); RBC,URINE NONE SEEN /HPF (0-2); SQUAMOUS EPITHELIAL CELL,UR FEW /LPF (FEW); WBC,URINE 0-4 /HPF (0-4)
[2022-11-07 12:40] LABS: URINE AMPHETAMINE SCREEN NEGATIVE (Neg); URINE BARBITUATE SCREEN NEGATIVE (Neg); URINE BENZODIAZEPINES SCREEN NEGATIVE (Neg); URINE CANNABINOID SCREEN NEGATIVE (Neg); URINE COCAINE SCREEN NEGATIVE (Neg); URINE METHADONE SCREEN NEGATIVE (Neg); URINE OPIATE SCREEN NEGATIVE (Neg); URINE PHENCYCLIDINE SCREEN NEGATIVE (Neg)
--- NOTE | 2022-11-07 13:05 | NUR ---
Patient is eating his lunch tray. No s/sx of distress.
--- NOTE | 2022-11-07 13:24 | NUR ---
[place] baum in [facility] - 11/07/22 at 1325 by CODY Geeta faxchristopher to [facility].
--- NOTE | 2022-11-07 15:00 | NUR ---
Patient lying on his left side and appears to be sleeping Breathing is even and unlabored. No s/sx of distress.
[2022-11-07] MEDS ORDERED: OLANZapine 5mg rapidly disint. tablet PO ONE (17:40)
[2022-11-07] MEDS: metFORMIN 500mg tablet PO SCH (19:07)
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
--- NOTE | 2022-11-07 19:47 | NUR ---
PACKET SENT TO [facility]
--- NOTE | 2022-11-07 20:31 | NUR ---
The patient appears to be sleeping
--- NOTE | 2022-11-07 22:56 | NUR ---
The patient appears to be sleeping
--- NOTE | 2022-11-08 00:42 | NUR ---
The patient appears to be sleeping
--- NOTE | 2022-11-08 03:05 | NUR ---
The patient appears to be sleeping well
--- NOTE | 2022-11-08 05:01 | NUR ---
The patient appears to be sleeping
[2022-11-08 06:09] VITALS: BP 111/72; PULSE 76; RESP 16; TEMP 97.4; O2SAT 98
--- NOTE | 2022-11-08 07:30 | NUR ---
Patient asleep comfortably, no obvious distress
[2022-11-08] MEDS ORDERED: cholecalciferol (vitamin D3) 1,000 unit (25mcg) tablet PO SCH (08:00)
[2022-11-08] MEDS ORDERED: fenofibrate 145mg tablet PO SCH (08:00)
[2022-11-08] MEDS ORDERED: cetirizine 10mg tablet PO SCH (08:00)
--- NOTE | 2022-11-08 08:17 | NUR ---
Breakfast served to the patient.
[2022-11-08] MEDS: metFORMIN 500mg tablet PO SCH (08:50)
--- NOTE | 2022-11-08 09:12 | NUR ---
Mental health clinician Richie evaluated patient. A safety plan will be made and patient was cleared to be discharge today.
--- NOTE | 2022-11-08 12:20 | NUR ---
All patient's belongings returned to the patient.
--- NOTE | 2022-11-08 12:21 | NUR ---
CALLED [facility] FOR TRANSPORTATION BACK TO PT'S HOME. [facility] WILL BE HERE @1300 AND CHARGED THE HOSPITAL ACCOUNT $20 FOR RIDE.
== END 2022-11-08 13:11 | disposition home or self-care (01) ==
LOC: ER 08:03
DX: F41.9 Anxiety disorder, unspecified (principal); Z20.822 Contact with and (suspected) exposure to COVID-19; Z79.899 Other long term (current) drug therapy; Z79.1 Long term (current) use of non-steroidal anti-inflammatories (NSAID)
CPT/HCPCS: 36415; 80053; 80305; 80320; 81001; 82948; 84443; 85025; 87811; 99285; Q0177

== ENCOUNTER 2022-11-20 15:16 | Emergency (ER) | payer MEDICARE, MEDICAID ==
[~2022-11-20] VITALS: Ht 175.3 cm; Wt 110.0 kg
[~2022-11-20 15:16] MED LIST changes: -ARIP10TA57 PO; +CHOL500044 PO; -FAMO20TA8; +HYDR-3927 PO; +METF-436 PO; -VENL150T3 PO
[2022-11-20 17:08] LABS: BASOPHILS # (AUTO) 0.1 X10'3 (0-0.2); BASOPHILS % (AUTO) 0.6 % (0-1); EOSINOPHILS # (AUTO) 0.2 X10'3 (0-0.9); EOSINOPHILS % (AUTO) 1.4 % (0-6); HEMATOCRIT 47.4 % (42.0-52.0); HEMOGLOBIN 16.1 g/dl (14.0-17.9); LYMPHOCYTES # (AUTO) 3.8 X10'3 (1.1-4.8); LYMPHOCYTES % (AUTO) 28.7 % (21-51); MEAN CORPUSCULAR HEMOGLOBIN 29.3 PG (27.0-31.0); MEAN CORPUSCULAR HGB CONC 33.9 g/dL (33.0-36.5); MEAN CORPUSCULAR VOLUME 86.4 FL (78-98); MEAN PLATELET VOLUME 8.5 FL (7.4-10.4); NEUTROPHILS % (AUTO) 61.3 % (42-75); PLATELET COUNT 279 X10'3 (140-440); RED BLOOD COUNT 5.49 X10'6 (4.70-6.10); RED CELL DISTRIBUTION WIDTH 13.6 % (11.5-14.5); WHITE BLOOD COUNT 13.1 X10'3 (4.5-11.0)
[2022-11-20 17:19] LABS: ALANINE AMINOTRANSFERASE 34 U/L (12-78); ALBUMIN 4.4 G/DL (3.4-5.0); ALBUMIN/GLOBULIN RATIO 1.2 (1.1-1.5); ALKALINE PHOSPHATASE 38 IU/L (46-116); ANION GAP 13 (8-16); ASPARTATE AMINO TRANSFERASE 27 U/L (10-37); BILIRUBIN,TOTAL 0.7 MG/DL (0.1-1.0); BLOOD UREA NITROGEN 17 MG/DL (7-18); BUN/CREATININE RATIO 13.6 (10.0-20.0); CALCIUM 10.1 MG/DL (8.5-10.1); CHLORIDE 103 MMOL/L (99-107); CREATININE 1.25 MG/DL (0.60-1.10); GLUCOSE 131 MG/DL (70-104); POTASSIUM 3.9 MMOL/L (3.5-5.1); SODIUM 140 MMOL/L (135-145); TOTAL CARBON DIOXIDE 24.1 MMOL/L (24-32); TOTAL PROTEIN 8.1 G/DL (6.4-8.2); eCRCL 72 ML/MIN; eGFR 62 ML/MIN
[2022-11-20 17:29] LABS: THYROID STIMULATING HORMONE 1.32 ulU/ml (0.34-4.50)
--- NOTE | 2022-11-20 18:30 | NUR ---
Pt brought over from ER main to overflow bed 23.
[2022-11-20] MEDS ORDERED: LORA-269 PO ×3 (19:03→19:28)
--- NOTE | 2022-11-20 19:16 | NUR ---
Pt's parents are at bedside, [facility] rec completed with their verification. Pt has been voicing some SI. Pt was given samples of a new medication Vraylar which he reports made his mouth numb and made him feel sleepy, so he stopped taking it. Pt states that he would like to be restarted on Effexor. Parents report that pt was on Effexor for years. Pt states that he had an appointment today with his provider which was cancelled because she is sick and his next appointment isn't until the of this month.
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
[2022-11-20] MEDS ORDERED: LORazepam 1 MG tablet PO PRN (19:40)
--- NOTE | 2022-11-20 19:44 | NUR ---
Pt currently denies SI/HI/AH/VH.
[2022-11-20] MEDS: metFORMIN 500mg tablet PO SCH (20:23)
--- NOTE | 2022-11-20 21:40 | NUR ---
Pt is lying on his back asleep, RR. Pt has thus far been unable to provide a urine despite encouragement and provision of water pitcher. Pt keeps saying, "it should be soon." Clean urinal on bedside table. Addendum: 11/20/22 at 2226 by DIOGENES RR 16.
--- NOTE | 2022-11-20 23:22 | NUR ---
Pt is appears to be sleeping, he is lying on his left side in bed, RR 20.
[2022-11-20] MEDS: ibuprofen 200mg tablet PO PRN (23:48)
--- NOTE | 2022-11-20 23:51 | NUR ---
Pt is tearful, he states he woke up in terrible back pain. Administered PRN ibuprofen 600 mg, adjusted his HOB.
[2022-11-20] MEDS: LORazepam 0.5 MG tablet PO PRN (23:55)
[2022-11-21 00:46] LABS: BILIRUBIN,URINE NEGATIVE (Neg); CLARITY,URINE CLEAR (Clear); COLOR,URINE YELLOW (Yellow); GLUCOSE, URINE NEGATIVE (Neg); KETONES,URINE NEGATIVE (Neg); LEUKOCYTE ESTERASE ,URINE NEGATIVE (Neg); NITRITES, URINE NEGATIVE (Neg); OCCULT BLOOD,URINE NEGATIVE (Neg); PROTEIN,URINE NEGATIVE (Neg); UROBILINOGEN,URINE 0.2 E.U/dL (0.2-1.0)
[2022-11-21 00:51] LABS: URINE AMPHETAMINE SCREEN NEGATIVE (Neg); URINE BARBITUATE SCREEN NEGATIVE (Neg); URINE BENZODIAZEPINES SCREEN NEGATIVE (Neg); URINE CANNABINOID SCREEN NEGATIVE (Neg); URINE COCAINE SCREEN NEGATIVE (Neg); URINE METHADONE SCREEN NEGATIVE (Neg); URINE OPIATE SCREEN NEGATIVE (Neg); URINE PHENCYCLIDINE SCREEN NEGATIVE (Neg)
[2022-11-21 00:53] LABS: UA COLLECTION TYPE CLN CATCH MIDSTREAM
--- NOTE | 2022-11-21 01:30 | NUR ---
Pt resting with eyes closed, RRn even abd unlabored. Pt in NAD, monitor for safety.
--- NOTE | 2022-11-21 02:56 | NUR ---
Patient sleeping. No distress observed. Continue to monitor.
--- NOTE | 2022-11-21 04:40 | NUR ---
Pt is lying in bed asleep, RR even and unlabored. Pt in NAD, monitor for safety.
--- NOTE | 2022-11-21 06:05 | NUR ---
Pt resting in bed, VS taken. Pt in no distress. Monitor for safety.
[2022-11-21] MEDS: LORazepam 0.5 MG tablet PO PRN (06:31)
--- NOTE | 2022-11-21 06:35 | NUR ---
Pt woke up tearful. "I'm hearing my alternate. He's violent and wants to take over. He scares me. I want to get back on my effexor." Ativan 0.5mg given. Monitor for safety.
[2022-11-21] MEDS ORDERED: ziprasidone IM 20mg inj **IM only IM ONE (06:55)
--- NOTE | 2022-11-21 06:55 | NUR ---
PT APPROACHES NURSES STATION TEARFUL AND PACING. HE ASKS "CAN'T I HAVE SOMETHING STRONGER? I CAN'T STAND THE VOICES!" PT DIRECTED TO RETURN TO BED WHILE THIS RN REQUESTS MEDICATION FROM DOCTOR, PT COMPLIES. IM GEODON 20 MG ORDERED AND ADMINISTERED. SHORTLY AFTER ADMINISTRATION PT STATES THE VOICES HAVE TURNED INTO "A BUZZING NOISE" WHICH HE STATES IS BETTER. PT IS CURRENTLY LYING QUIETLY IN BED
--- NOTE | 2022-11-21 07:28 | NUR ---
[facility] FAXED
--- NOTE | 2022-11-21 07:31 | NUR ---
PACKET FAXED TO [facility]
[2022-11-21] MEDS: metFORMIN 500mg tablet PO SCH (07:56)
[2022-11-21] MEDS ORDERED: cholecalciferol (vitamin D3) 1,000 unit (25mcg) tablet PO SCH (08:00)
[2022-11-21] MEDS ORDERED: fenofibrate 145mg tablet PO SCH (08:00)
[2022-11-21] MEDS ORDERED: cetirizine 10mg tablet PO SCH (08:00)
--- NOTE | 2022-11-21 10:47 | NUR ---
RECEIVED REPORT FROM TRIPP RAMOS. PT IS IN BED SLEEPING. WITNESSED CHEST RISING AND FALLING. BREATHING EVEN UNLABORED. NO NEEDS AT THIS TIME.
--- NOTE | 2022-11-21 12:18 | NUR ---
CHECKED PT'S BLOOD SUGAR. BLOOD SUGAR WAS 118. PT DID NOT WANT TO EAT AT THE MOMENT AND WENT BACK TO BED.
--- NOTE | 2022-11-21 12:59 | NUR ---
PT IS SLEEPING SUPINE IN BED. BREATHING EVEN, UNLABORED.
--- NOTE | 2022-11-21 13:59 | NUR ---
PT IS STILL ASLEEP IN BED. BREATHING EVEN AND UNLAORED.
[2022-11-21] MEDS ORDERED: iohexol 300mg/ml 100ml inj. ONE (14:31)
--- NOTE | 2022-11-21 14:56 | NUR ---
CT CAME AND PICKED UP PT TO SCAN ABD.
--- NOTE | 2022-11-21 15:19 | NUR ---
DISCONNECTED IV IN LEFT AC [address] SCAN.
--- NOTE | 2022-11-21 16:03 | NUR ---
PT CAME BACK FROM HIS CT SCAN AND ATE VERY LITTLE OF HIS LUNCH. PT IS ON HIS LEFT SIDE SLEEPING. BREATHING IS EQUAL AND UNLABORED.
--- NOTE | 2022-11-21 16:46 | NUR ---
PT IS ASLEEP IN BED.
--- NOTE | 2022-11-21 17:46 | NUR ---
PT IS ASLEEP IN BED ON HIS RIGHT SIDE. BREATHING EQUAL AND UNLABORED.
[2022-11-21] MEDS: ibuprofen 200mg tablet PO PRN (18:23)
[2022-11-21 18:24] VITALS: BP 128/84; PULSE 85; TEMP 97; O2SAT 97
--- NOTE | 2022-11-21 18:45 | NUR ---
Discharge orders were received. Client does not have stack to his house. Spoke with Paula, clients mother, who confirmed she has the stack. Paula lives in [facility] and is unable to pickling machine operator client. Paula would like client to stay 'until Wednesday'. (She may beable to get client tomorrow.) Informed SHAUNNA Monroe about situation. Waiting for a response from SHAUNNA.
--- NOTE | 2022-11-21 20:00 | NUR ---
Client resting on right side. Resp even and unlabored. Waiting to hear discharge instructions from [facility]. Client is unable to access home or get a ride.
--- NOTE | 2022-11-21 20:37 | NUR ---
Clients mother called regarding transport. She asked "Has he been picked up?" Per SHAUNNA Monroe no transport arrangements have been made.
--- NOTE | 2022-11-21 20:40 | NUR ---
Left message for clients mother at 20:40.
--- NOTE | 2022-11-21 20:51 | NUR ---
Spoke with Paula George at 21:45. Clients' father is coming to get client at approximately 22:00. Client is aware. Addendum: 11/21/22 at 2110 by [email or web address] CORRECTION: Spoke with clients' Mother at 20:45.
--- NOTE | 2022-11-21 22:06 | NUR ---
Clients father is here to pickup client. Changed into street clothes. Belongings were returned. Discharge instructions were reviewed and signed by client. Escorted to Hospital Entrance by Gary Sandoval LVN. Clients mood is stable at this time. AO x 4.
[2022-11-21 22:10] VITALS: RESP 16
[2022-11-22] MEDS ORDERED: MESSAGE TO NURSING PO NR (08:00)
== END 2022-11-21 22:14 | disposition home or self-care (01) ==
LOC: ER 15:17
DX: R45.851 Suicidal ideations (principal); R45.1 Restlessness and agitation; R10.13 Epigastric pain; Z20.822 Contact with and (suspected) exposure to COVID-19; R44.0 Auditory hallucinations; G89.29 Other chronic pain; F41.9 Anxiety disorder, unspecified; F32.A Depression, unspecified; Z79.899 Other long term (current) drug therapy; Z91.199 Patient's noncompliance with other medical treatment and regimen due to unspecified reason
CPT/HCPCS: 36415; 74177; 80053; 80305; 81003; 82948; 84443; 85025; 87811; 99285; J3486; J3490; Q9967

== ENCOUNTER 2023-02-26 00:24 | Emergency (ER) | payer MEDICARE, MEDICAID ==
[~2023-02-26] VITALS: Ht 175.3 cm; Wt 100.0 kg
[~2023-02-26 00:24] MED LIST changes: -HYDR-3927 PO; -LORA-268 PO; +LORA-269 PO
[2023-02-26 01:42] VITALS: BP 154/84; PULSE 84; O2SAT 98
[2023-02-26] MEDS ORDERED: LORazepam 1 MG tablet PO ONE (02:30)
[2023-02-26] MEDS ORDERED: diphenhydrAMINE 25mg capsule PO ONE (02:30)
[2023-02-26 03:36] LABS: BASOPHILS # (AUTO) 0.1 X10'3 (0-0.2); BASOPHILS % (AUTO) 0.6 % (0-1); EOSINOPHILS # (AUTO) 0.1 X10'3 (0-0.9); EOSINOPHILS % (AUTO) 1.2 % (0-6); HEMATOCRIT 46.4 % (42.0-52.0); HEMOGLOBIN 15.8 g/dl (14.0-17.9); LYMPHOCYTES # (AUTO) 2.7 X10'3 (1.1-4.8); LYMPHOCYTES % (AUTO) 22.1 % (21-51); MEAN CORPUSCULAR HEMOGLOBIN 28.9 PG (27.0-31.0); MEAN CORPUSCULAR HGB CONC 34.1 g/dL (33.0-36.5); MEAN CORPUSCULAR VOLUME 84.8 FL (78-98); MEAN PLATELET VOLUME 8.5 FL (7.4-10.4); MONOCYTES # (AUTO) 0.8 X10'3 (0-0.9); MONOCYTES % (AUTO) 6.7 % (2-12); NEUTROPHILS # (AUTO) 8.4 X10'3 (1.8-7.7); NEUTROPHILS % (AUTO) 69.4 % (42-75); PLATELET COUNT 247 X10'3 (140-440); RED BLOOD COUNT 5.48 X10'6 (4.70-6.10); RED CELL DISTRIBUTION WIDTH 13.9 % (11.5-14.5)
[2023-02-26 03:42] VITALS: RESP 18
[2023-02-26 03:43] LABS: ALANINE AMINOTRANSFERASE 24 U/L (12-78); ALBUMIN 3.9 G/DL (3.4-5.0); ALKALINE PHOSPHATASE 64 IU/L (46-116); ANION GAP 9 (8-16); ASPARTATE AMINO TRANSFERASE 21 U/L (10-37); BILIRUBIN,TOTAL 0.4 MG/DL (0.1-1.0); BLOOD UREA NITROGEN 14 MG/DL (7-18); BUN/CREATININE RATIO 12.7 (10.0-20.0); CALCIUM 9.4 MG/DL (8.5-10.1); CHLORIDE 103 MMOL/L (99-107); GLUCOSE 170 MG/DL (70-104); POTASSIUM 3.8 MMOL/L (3.5-5.1); SODIUM 139 MMOL/L (135-145); TOTAL CARBON DIOXIDE 26.6 MMOL/L (24-32); TOTAL PROTEIN 7.9 G/DL (6.4-8.2); eCRCL 82 ML/MIN; eGFR 71 ML/MIN
[2023-02-26 03:49] LABS: URINE AMPHETAMINE SCREEN NEGATIVE (Neg); URINE BARBITUATE SCREEN NEGATIVE (Neg); URINE BENZODIAZEPINES SCREEN NEGATIVE (Neg); URINE CANNABINOID SCREEN NEGATIVE (Neg); URINE COCAINE SCREEN NEGATIVE (Neg); URINE METHADONE SCREEN NEGATIVE (Neg); URINE OPIATE SCREEN NEGATIVE (Neg); URINE PHENCYCLIDINE SCREEN NEGATIVE (Neg)
[2023-02-26 03:54] LABS: ETHANOL < 10 MG/DL (<10); THYROID STIMULATING HORMONE 0.66 ulU/ml (0.34-4.50)
[2023-02-26] MEDS ORDERED: LORazepam 1 MG tablet PO PRN (07:40)
[2023-02-26] MEDS ORDERED: ibuprofen 200mg tablet PO PRN (07:45)
[2023-02-26] MEDS ORDERED: fenofibrate 145mg tablet PO SCH (08:00)
[2023-02-26] MEDS ORDERED: cholecalciferol (vitamin D3) 1,000 unit (25mcg) tablet PO SCH (08:00)
[2023-02-26] MEDS ORDERED: metFORMIN 500mg tablet PO SCH (08:00)
[2023-02-26] MEDS ORDERED: cetirizine 10mg tablet PO SCH (08:00)
[2023-02-26 14:10] VITALS: TEMP 98
== END 2023-02-26 14:11 | disposition home or self-care (01) ==
LOC: ER 00:25
DX: R45.851 Suicidal ideations (principal); Z20.822 Contact with and (suspected) exposure to COVID-19; G89.29 Other chronic pain; F41.9 Anxiety disorder, unspecified; F31.9 Bipolar disorder, unspecified; F44.81 Dissociative identity disorder; Z79.899 Other long term (current) drug therapy
CPT/HCPCS: 36415; 80053; 80305; 80320; 84443; 85025; 87811; 99285; Q0163

== ENCOUNTER 2023-11-30 12:15 | Emergency (ER) | payer MEDICARE, MEDICAID ==
[~2023-11-30] VITALS: Ht 175.3 cm; Wt 115.5 kg
[2023-11-30 12:18] VITALS: BP 191/110; PULSE 98; RESP 16; TEMP 97.6; O2SAT 98
== END 2023-11-30 13:31 | disposition left against medical advice (07) ==
LOC: ER 12:16
DX: J34.89 Other specified disorders of nose and nasal sinuses (principal); Z53.21 Procedure and treatment not carried out due to patient leaving prior to being seen by health care provider

== ENCOUNTER 2023-12-21 16:51 | Emergency (ER) | payer MEDICARE, MEDICAID ==
[~2023-12-21] VITALS: Ht 175.3 cm; Wt 115.8 kg
[2023-12-21 16:59] VITALS: BP 141/100; PULSE 105; RESP 16; TEMP 97.1; O2SAT 99
== END 2023-12-21 17:46 | disposition left against medical advice (07) ==
LOC: ER 16:51
DX: M54.2 Cervicalgia (principal); I10 Essential (primary) hypertension; Z53.21 Procedure and treatment not carried out due to patient leaving prior to being seen by health care provider

== ENCOUNTER 2023-12-21 23:01 | Emergency (ER) | payer MEDICARE, MEDICAID ==
[~2023-12-21] VITALS: Ht 175.3 cm; Wt 115.9 kg
[2023-12-22] MEDS: orphenadrine citrate 60mg/2ml inj. IM ONE (00:07)
[2023-12-22] MEDS: LORazepam 1 MG tablet PO ONE (02:34)
[2023-12-22 05:07] VITALS: BP 110/70; PULSE 62; RESP 16; TEMP 97.8; O2SAT 100
== END 2023-12-22 04:00 | disposition home or self-care (01) ==
LOC: ER 23:02
DX: R25.3 Fasciculation (principal); G89.29 Other chronic pain; F41.9 Anxiety disorder, unspecified; F32.A Depression, unspecified; Z79.899 Other long term (current) drug therapy; Z79.84 Long term (current) use of oral hypoglycemic drugs
CPT/HCPCS: 96372; 99285; J2360

== ENCOUNTER 2024-01-18 03:09 | Emergency (ER) | payer MEDICARE, MEDICAID ==
[~2024-01-18] VITALS: Ht 175.3 cm; Wt 113.6 kg
[2024-01-18 03:22] VITALS: BP 110/63; RESP 16; TEMP 99.3
[2024-01-18] MEDS ORDERED: SULF1TAB49 PO (03:56)
[2024-01-18] MEDS: sulfamethoxazole/trimethoprim DS (800/160mg) tablet PO ONE ×2 (04:17→04:23)
[2024-01-18 04:51] VITALS: PULSE 91; O2SAT 97
== END 2024-01-18 05:21 | disposition home or self-care (01) ==
LOC: ER 03:09
DX: G89.18 Other acute postprocedural pain (principal); M25.531 Pain in right wrist; L03.113 Cellulitis of right upper limb; E11.9 Type 2 diabetes mellitus without complications; G89.29 Other chronic pain; M54.9 Dorsalgia, unspecified; F41.9 Anxiety disorder, unspecified; F32.A Depression, unspecified; Z98.890 Other specified postprocedural states; Z60.2 Problems related to living alone; Z20.822 Contact with and (suspected) exposure to COVID-19; Z79.84 Long term (current) use of oral hypoglycemic drugs
CPT/HCPCS: 36415; 87811; 99283

== ENCOUNTER 2024-02-21 22:35 | Emergency (ER) | payer MEDICARE, MEDICAID ==
[~2024-02-21] VITALS: Ht 175.3 cm; Wt 115.9 kg
[2024-02-21 22:38] VITALS: BP 109/68; PULSE 85; RESP 16; TEMP 98.2; O2SAT 98
[2024-02-21 23:11] LABS: BASOPHILS # (AUTO) 0.1 X10'3 (0-0.2); BASOPHILS % (AUTO) 0.9 % (0-1); EOSINOPHILS # (AUTO) 0.2 X10'3 (0-0.9); EOSINOPHILS % (AUTO) 1.9 % (0-6); HEMATOCRIT 38.3 % (42.0-52.0); HEMOGLOBIN 13.3 g/dl (14.0-17.9); LYMPHOCYTES # (AUTO) 2.8 X10'3 (1.1-4.8); LYMPHOCYTES % (AUTO) 26.3 % (21-51); MEAN CORPUSCULAR HEMOGLOBIN 30.4 PG (27.0-31.0); MEAN CORPUSCULAR HGB CONC 34.8 g/dL (33.0-36.5); MEAN CORPUSCULAR VOLUME 87.3 FL (78-98); MEAN PLATELET VOLUME 8.3 FL (7.4-10.4); MONOCYTES # (AUTO) 0.8 X10'3 (0-0.9); MONOCYTES % (AUTO) 7.9 % (2-12); NEUTROPHILS # (AUTO) 6.8 X10'3 (1.8-7.7); PLATELET COUNT 232 X10'3 (140-440); RED BLOOD COUNT 4.39 X10'6 (4.70-6.10); RED CELL DISTRIBUTION WIDTH 14.7 % (11.5-14.5); WHITE BLOOD COUNT 10.8 X10'3 (4.5-11.0)
[2024-02-21 23:25] LABS: ALANINE AMINOTRANSFERASE 36 U/L (12-78); ALBUMIN 3.8 G/DL (3.4-5.0); ALKALINE PHOSPHATASE 53 IU/L (46-116); ANION GAP 10 (8-16); ASPARTATE AMINO TRANSFERASE 21 U/L (10-37); BILIRUBIN,TOTAL 0.4 MG/DL (0.1-1.0); BLOOD UREA NITROGEN 15 MG/DL (7-18); BUN/CREATININE RATIO 12.2 (10.0-20.0); CALCIUM 9.1 MG/DL (8.5-10.1); CHLORIDE 101 MMOL/L (99-107); CREATININE 1.23 MG/DL (0.60-1.10); GLUCOSE 195 MG/DL (70-104); LIPASE 59 U/L (16-77); POTASSIUM 3.8 MMOL/L (3.5-5.1); SODIUM 139 MMOL/L (135-145); TOTAL CARBON DIOXIDE 28.3 MMOL/L (24-32); TOTAL PROTEIN 7.6 G/DL (6.4-8.2); eCRCL 73 ML/MIN; eGFR 63 ML/MIN
== END 2024-02-22 02:31 | disposition left against medical advice (07) ==
LOC: ER 22:35
DX: R10.11 Right upper quadrant pain (principal); Z53.21 Procedure and treatment not carried out due to patient leaving prior to being seen by health care provider
CPT/HCPCS: 36415; 80053; 83690; 85025

== ENCOUNTER 2024-05-12 11:54 | Emergency (ER) | payer MEDICARE, MEDICAID ==
[~2024-05-12] VITALS: Ht 175.3 cm; Wt 115.0 kg
[2024-05-12 11:56] VITALS: BP 124/89; PULSE 112; RESP 16; O2SAT 98
[2024-05-12] MEDS: LORazepam 1 MG tablet PO ONE (13:46)
[2024-05-12 13:47] VITALS: TEMP 98
== END 2024-05-12 13:48 | disposition home or self-care (01) ==
LOC: ER 11:55
DX: Z00.00 Encounter for general adult medical examination without abnormal findings (principal); F41.9 Anxiety disorder, unspecified; F32.A Depression, unspecified
CPT/HCPCS: 99283

== ENCOUNTER 2024-06-04 05:51 | Emergency (ER) | payer MEDICARE, MEDICAID ==
[~2024-06-04] VITALS: Ht 175.3 cm; Wt 120.0 kg
[2024-06-04] MEDS: diazepam 5mg tablet PO ONE (07:11)
[2024-06-04] MEDS ORDERED: CARI4.5C PO (07:23)
[2024-06-04] MEDS ORDERED: [UNRECOGNIZED DRUG - OTHER] PF (07:23)
[2024-06-04] MEDS ORDERED: AMLO5TAB16 PO (07:23)
[2024-06-04] MEDS ORDERED: VENL25TA48 PO (07:23)
[2024-06-04] MEDS ORDERED: Probiotic (07:23)
[2024-06-04] MEDS ORDERED: TIZA-189 PO (07:23)
[2024-06-04] MEDS ORDERED: AMLO2.5T2 PO (07:23)
[2024-06-04] MEDS ORDERED: SITA25TA3 PO (07:23)
[2024-06-04] MEDS ORDERED: OLME20TA69 PO (07:23)
[2024-06-04] MEDS ORDERED: LAMO25TA5 PO (07:23)
[2024-06-04] MEDS ORDERED: ROSU40TA89 PO (07:23)
[2024-06-04] MEDS ORDERED: CLON-850 PO (07:24)
[2024-06-04 07:31] LABS: URINE AMPHETAMINE SCREEN NEGATIVE (Neg); URINE BARBITUATE SCREEN NEGATIVE (Neg); URINE BENZODIAZEPINES SCREEN NEGATIVE (Neg); URINE CANNABINOID SCREEN NEGATIVE (Neg); URINE COCAINE SCREEN NEGATIVE (Neg); URINE METHADONE SCREEN NEGATIVE (Neg); URINE OPIATE SCREEN NEGATIVE (Neg); URINE PHENCYCLIDINE SCREEN NEGATIVE (Neg)
[2024-06-04 07:40] LABS: BILIRUBIN,URINE NEGATIVE (Neg); CLARITY,URINE CLEAR (Clear); COLOR,URINE YELLOW (Yellow); GLUCOSE, URINE NEGATIVE (Neg); KETONES,URINE NEGATIVE (Neg); LEUKOCYTE ESTERASE ,URINE NEGATIVE (Neg); NITRITES, URINE NEGATIVE (Neg); OCCULT BLOOD,URINE NEGATIVE (Neg); PROTEIN,URINE NEGATIVE (Neg); UROBILINOGEN,URINE 0.2 E.U/dL (0.2-1.0)
[2024-06-04] MEDS ORDERED: acetaminophen 325mg tablet PO ONE (07:40)
[2024-06-04 07:44] LABS: UA COLLECTION TYPE URINAL
[2024-06-04 07:50] LABS: BASOPHILS # (AUTO) 0.1 X10'3 (0-0.2); BASOPHILS % (AUTO) 0.6 % (0-1); EOSINOPHILS # (AUTO) 0.2 X10'3 (0-0.9); HEMOGLOBIN 13.1 g/dl (14.0-17.9); LYMPHOCYTES # (AUTO) 2.6 X10'3 (1.1-4.8); LYMPHOCYTES % (AUTO) 22.8 % (21-51); MEAN CORPUSCULAR HEMOGLOBIN 29.4 PG (27.0-31.0); MEAN CORPUSCULAR HGB CONC 33.6 g/dL (33.0-36.5); MEAN CORPUSCULAR VOLUME 87.7 FL (78-98); MEAN PLATELET VOLUME 9.1 FL (7.4-10.4); MONOCYTES % (AUTO) 9.1 % (2-12); NEUTROPHILS # (AUTO) 7.5 X10'3 (1.8-7.7); NEUTROPHILS % (AUTO) 65.5 % (42-75); PLATELET COUNT 235 X10'3 (140-440); RED BLOOD COUNT 4.45 X10'6 (4.70-6.10); RED CELL DISTRIBUTION WIDTH 13.4 % (11.5-14.5); WHITE BLOOD COUNT 11.4 X10'3 (4.5-11.0)
[2024-06-04] MEDS: acetaminophen 325mg tablet PO ONE (07:52)
[2024-06-04 08:07] LABS: ALBUMIN 3.8 G/DL (3.4-5.0); ANION GAP 6 (8-16); BLOOD UREA NITROGEN 18 MG/DL (7-18); BUN/CREATININE RATIO 16.5 (10.0-20.0); CALCIUM 9.2 MG/DL (8.5-10.1); CHLORIDE 105 MMOL/L (99-107); CREATININE 1.09 MG/DL (0.60-1.10); ETHANOL < 10 MG/DL (<10); GLUCOSE 160 MG/DL (70-104); POTASSIUM 4.2 MMOL/L (3.5-5.1); SODIUM 139 MMOL/L (135-145); THYROID STIMULATING HORMONE 1.45 ulU/ml (0.34-4.50); TOTAL CARBON DIOXIDE 28.4 MMOL/L (24-32); eCRCL 81 ML/MIN; eGFR 72 ML/MIN
[2024-06-04 08:16] VITALS: BP 115/60; PULSE 79; RESP 16; O2SAT 99
[2024-06-04 08:21] VITALS: TEMP 98.4
[2024-06-05] MEDS ORDERED: VENL75CA61 PO (04:48)
== END 2024-06-04 08:23 | disposition home or self-care (01) ==
LOC: ER 05:51
DX: F41.9 Anxiety disorder, unspecified (principal); F32.A Depression, unspecified; Z98.890 Other specified postprocedural states; Z20.822 Contact with and (suspected) exposure to COVID-19
CPT/HCPCS: 36415; 80048; 80305; 81003; 84443; 85025; 87811; 99284; G0480; 80320

== ENCOUNTER 2024-06-04 13:26 | Emergency (ER) | payer MEDICARE, MEDICAID ==
[~2024-06-04] VITALS: Ht 175.3 cm; Wt 117.7 kg
[~2024-06-04 13:26] MED LIST changes: +AMLO2.5T2 PO; +AMLO5TAB16 PO; +CARI4.5C PO; +CLON-850 PO; +LAMO25TA5 PO; +OLME20TA69 PO; +Probiotic; +ROSU40TA89 PO; +SITA25TA3 PO; +TIZA-189 PO; +VENL25TA48 PO; +[UNRECOGNIZED DRUG - OTHER] PF
[2024-06-04] MEDS: diazepam 5mg tablet PO ONE (15:39)
[2024-06-04 16:26] LABS: BILIRUBIN,URINE NEGATIVE (Neg); CLARITY,URINE CLEAR (Clear); COLOR,URINE YELLOW (Yellow); GLUCOSE, URINE NEGATIVE (Neg); KETONES,URINE NEGATIVE (Neg); LEUKOCYTE ESTERASE ,URINE NEGATIVE (Neg); NITRITES, URINE NEGATIVE (Neg); OCCULT BLOOD,URINE NEGATIVE (Neg); PROTEIN,URINE NEGATIVE (Neg); UROBILINOGEN,URINE 0.2 E.U/dL (0.2-1.0)
[2024-06-04 16:30] LABS: HEMOGLOBIN 13.3 g/dl (14.0-17.9); MEAN PLATELET VOLUME 8.7 FL (7.4-10.4); PLATELET COUNT 232 X10'3 (140-440); WHITE BLOOD COUNT 10.3 X10'3 (4.5-11.0)
[2024-06-04 16:31] LABS: UA COLLECTION TYPE CLN CATCH MIDSTREAM
[2024-06-04 16:32] LABS: BASOPHILS # (AUTO) 0.1 X10'3 (0-0.2); BASOPHILS % (AUTO) 0.9 % (0-1); EOSINOPHILS # (AUTO) 0.2 X10'3 (0-0.9); HEMATOCRIT 39.3 % (42.0-52.0); LYMPHOCYTES # (AUTO) 2.4 X10'3 (1.1-4.8); LYMPHOCYTES % (AUTO) 23.8 % (21-51); MEAN CORPUSCULAR HEMOGLOBIN 29.6 PG (27.0-31.0); MEAN CORPUSCULAR HGB CONC 33.8 g/dL (33.0-36.5); MEAN CORPUSCULAR VOLUME 87.6 FL (78-98); MONOCYTES # (AUTO) 0.9 X10'3 (0-0.9); MONOCYTES % (AUTO) 8.4 % (2-12); NEUTROPHILS # (AUTO) 6.7 X10'3 (1.8-7.7); NEUTROPHILS % (AUTO) 64.9 % (42-75); RED BLOOD COUNT 4.49 X10'6 (4.70-6.10); RED CELL DISTRIBUTION WIDTH 13.1 % (11.5-14.5)
[2024-06-04 16:34] LABS: URINE AMPHETAMINE SCREEN NEGATIVE (Neg); URINE BARBITUATE SCREEN NEGATIVE (Neg); URINE BENZODIAZEPINES SCREEN NEGATIVE (Neg); URINE CANNABINOID SCREEN NEGATIVE (Neg); URINE COCAINE SCREEN NEGATIVE (Neg); URINE METHADONE SCREEN NEGATIVE (Neg); URINE OPIATE SCREEN NEGATIVE (Neg); URINE PHENCYCLIDINE SCREEN NEGATIVE (Neg)
[2024-06-04 16:49] LABS: ETHANOL < 10 MG/DL (<10); THYROID STIMULATING HORMONE 1.54 ulU/ml (0.34-4.50)
[2024-06-05] MEDS: clonazePAM 0.5mg tablet PO STA (03:53)
[2024-06-05] MEDS ORDERED: VENL75CA61 PO (04:48)
[2024-06-05] MEDS: venlafaxine XR 75mg capsule (Q24H) PO SCH (08:39)
[2024-06-05] MEDS: linagliptin 5mg tablet PO SCH (08:39)
[2024-06-05] MEDS: cetirizine 10mg tablet PO SCH (08:40)
[2024-06-05] MEDS: losartan 50mg tablet PO SCH (08:41)
[2024-06-05] MEDS: clonazePAM 0.5mg tablet PO PRN (08:42)
[2024-06-05] MEDS: amLODIPine 5mg tablet PO SCH (08:42)
[2024-06-05] MEDS: metFORMIN 500mg tablet PO SCH (08:46)
[2024-06-05] MEDS: tizanidine 4mg tablet PO SCH (08:47)
[2024-06-05 09:12] VITALS: BP 118/60; PULSE 79; RESP 16; TEMP 98.6; O2SAT 99
[2024-06-05] MEDS ORDERED: lamoTRIgine 25mg tablet PO SCH (21:00)
== END 2024-06-05 09:16 | disposition home or self-care (01) ==
LOC: ER 13:27
DX: R45.851 Suicidal ideations (principal); F41.9 Anxiety disorder, unspecified; F32.A Depression, unspecified; Z20.822 Contact with and (suspected) exposure to COVID-19; Z98.890 Other specified postprocedural states
CPT/HCPCS: 36415; 80305; 81003; 84443; 85025; 87811; 99284; G0480; 80320

== ENCOUNTER 2024-06-06 19:18 | Emergency (ER) | payer MEDICARE, MEDICAID ==
[~2024-06-06] VITALS: Ht 175.3 cm; Wt 120.0 kg
[~2024-06-06 19:18] MED LIST changes: +VENL75CA61 PO
[2024-06-06 19:27] VITALS: TEMP 97.4
[2024-06-06 20:28] LABS: BASOPHILS # (AUTO) 0.1 X10'3 (0-0.2); BASOPHILS % (AUTO) 0.8 % (0-1); EOSINOPHILS # (AUTO) 0.2 X10'3 (0-0.9); EOSINOPHILS % (AUTO) 2.2 % (0-6); HEMATOCRIT 36.7 % (42.0-52.0); HEMOGLOBIN 12.5 g/dl (14.0-17.9); LYMPHOCYTES % (AUTO) 25.1 % (21-51); MEAN CORPUSCULAR HEMOGLOBIN 29.7 PG (27.0-31.0); MEAN CORPUSCULAR HGB CONC 34.1 g/dL (33.0-36.5); MEAN CORPUSCULAR VOLUME 87.2 FL (78-98); MEAN PLATELET VOLUME 8.6 FL (7.4-10.4); MONOCYTES # (AUTO) 0.7 X10'3 (0-0.9); MONOCYTES % (AUTO) 9.2 % (2-12); NEUTROPHILS % (AUTO) 62.7 % (42-75); PLATELET COUNT 204 X10'3 (140-440); RED BLOOD COUNT 4.21 X10'6 (4.70-6.10); RED CELL DISTRIBUTION WIDTH 13.4 % (11.5-14.5)
[2024-06-06 20:36] LABS: ALBUMIN 3.7 G/DL (3.4-5.0); ANION GAP 8 (8-16); BLOOD UREA NITROGEN 23 MG/DL (7-18); BUN/CREATININE RATIO 22.5 (10.0-20.0); CALCIUM 8.9 MG/DL (8.5-10.1); CHLORIDE 104 MMOL/L (99-107); CREATININE 1.02 MG/DL (0.60-1.10); GLUCOSE 182 MG/DL (70-104); POTASSIUM 4.3 MMOL/L (3.5-5.1); SODIUM 140 MMOL/L (135-145); TOTAL CARBON DIOXIDE 27.8 MMOL/L (24-32); eCRCL 87 ML/MIN; eGFR 77 ML/MIN
[2024-06-06] MEDS: lamoTRIgine 25mg tablet PO ONE (20:49)
[2024-06-06 22:02] VITALS: BP 139/72; PULSE 95; RESP 18; O2SAT 96
== END 2024-06-06 22:03 | disposition home or self-care (01) ==
LOC: ER 19:18
DX: G40.909 Epilepsy, unspecified, not intractable, without status epilepticus (principal); R45.851 Suicidal ideations
CPT/HCPCS: 36415; 80048; 85025; 99283

== ENCOUNTER 2024-08-24 21:09 | Emergency (ER) | payer MEDICARE, MEDICAID ==
[~2024-08-24 21:09] MED LIST changes: -AMLO2.5T2 PO; -CHOL500044 PO; -FENO145T25 PO; -IBUP-1985 PO; +LAMO-24 PO; -LAMO25TA5 PO; -LORA-269 PO; -VENL25TA48 PO; -[UNRECOGNIZED DRUG - OTHER] PF
== END 2024-08-24 21:29 | disposition left against medical advice (07) ==
LOC: ER 21:10
DX: Z00.8 Encounter for other general examination (principal); Z53.21 Procedure and treatment not carried out due to patient leaving prior to being seen by health care provider